=== PATIENT | male | born 1995 | race American Indian/Alaskan Native ===

== ENCOUNTER 2017-07-16 14:57 | Emergency (ER) | payer BC ==
[2017-07-16 15:44] VITALS: BP 173/104
[2017-07-16 16:40] LABS: Basophils # (Auto) 0.1 K/mm3 (0.0-0.1); Eosinophils # (Auto) 0.6 K/mm3 (0.0-0.4); Eosinophils % (Auto) 5.9 % (0.0-4.3); Hematocrit 47.5 % (35.5-45.6); Hemoglobin 15.1 gm/dl (11.8-15.2); Lymphocytes # (Auto) 2.7 K/mm3 (1.2-5.4); Lymphocytes % (Auto) 26.1 % (13.4-35.0); Mean Corpuscular HGB Conc 32 % (32-34); Mean Corpuscular Hemoglobin 22 pg (28-32); Mean Corpuscular Volume 70 fl (84-94); Monocytes # (Auto) 0.8 K/mm3 (0.0-0.8); Monocytes % (Auto) 7.5 % (0.0-7.3); Platelet Count 254 K/mm3 (140-440); Red Cell Distribution Width 15.8 % (13.2-15.2)
[2017-07-16 17:20] LABS: BUN/Creatinine Ratio 11; Blood Urea Nitrogen 10 mg/dL (9-20); Calcium 9.7 mg/dL (8.4-10.2); Hemolysis Index 15
--- NOTE | 2017-07-16 18:19 | XRay Report ---
FINAL REPORT EXAM: XR CHEST ROUTINE 2V HISTORY: Asthma TECHNIQUE: 2 view examination of the chest PRIORS: None FINDINGS: There is no visible pulmonary consolidation, pleural effusion, or pneumothorax. Cardiac silhouette size is normal without vascular congestion. No visible acute displaced fracture in the regional skeleton. IMPRESSION: No evidence of acute cardiopulmonary disease
== END 2017-07-17 00:13 | disposition left against medical advice (07) ==
LOC: ED 14:57
DX: J45.909 Unspecified asthma, uncomplicated (principal); Z53.21 Procedure and treatment not carried out due to patient leaving prior to being seen by health care provider
CPT/HCPCS: 36415; 71046; 80048; 85025

== ENCOUNTER 2017-10-06 08:15 | Emergency (ER) | payer BC ==
[2017-10-06] MEDS ORDERED: DUONEB *Not for PRN Use IH ONE (08:27)
[2017-10-06 10:59] VITALS: BP 122/56
--- NOTE | 2017-10-06 11:10 | Emergency Department Report ---
ED Asthma HPI - General Chief Complaint: Adult Asthma Stated Complaint: HOMER Time Seen by Provider: 10/06/17 09:40 Source: patient Mode of arrival: Ambulatory Limitations: No Limitations - History of Present Illness Initial Comments: This is a 21 y.o. male that presents with SOB, wheezing, and chest pain on awaking this morning. History of asthma diagnosed as child. He is out of proair inhaler for 2-3 months. Patient reports feeling fine and didn't think he needed to get a refill. He moved from [place] to [place] and no longer have a primary care provider. He is having chest tightness and wheezing currently. Denies fever, congestion, rhinorrhea, dizziness, and nausea/vomiting. MD Complaint: "asthma attack", wheezing -: This morning Asthma History: childhood onset Severity: mild Context: ran out of meds, medication non-compliance Associated Symptoms: dry cough, chest pain (chest tightness). denies: productive cough, fever, hemoptysis, leg edema, syncope - Related Data Current Asthma Therapy: none Previous Rx's Medication Instructions Recorded Last Taken Type ALBUTEROL Inhaler [ProAir HFA 2 puff IH QID PRN #1 inhalation 10/06/17 Unknown Rx Inhaler] Allergies Allergy/AdvReac Type Severity Reaction Status Date / Time No Known Allergies Allergy Verified 10/06/17 11:01 ED Review of Systems ROS: Stated complaint: HOMER Other details as noted in HPI Constitutional: denies: chills, fever Respiratory: cough, shortness of breath, SOB with exertion, wheezing Cardiovascular: denies: chest pain (tightness with cough), palpitations, edema, syncope Gastrointestinal: denies: abdominal pain, nausea, vomiting, diarrhea, constipation Neurological: denies: headache, weakness, numbness, paresthesias Psychiatric: denies: anxiety, depression ED Past Medical Hx - Past Medical History Previous Medical History?: Yes Hx Asthma: Yes - Surgical History Past Surgical History?: No - Social History Smoking Status: Never Smoker - Medications Home Medications: Home Medications Medication Instructions Recorded Confirmed Last Taken Type ALBUTEROL Inhaler [ProAir HFA 2 puff IH QID PRN #1 inhalation 10/06/17 Unknown Rx Inhaler] ED Physical Exam - General Limitations: No Limitations General appearance: alert, in no apparent distress - Respiratory Respiratory exam: Present: wheezes (throughout). Absent: rales, rhonchi, stridor, chest wall tenderness, accessory muscle use - Cardiovascular Cardiovascular Exam: Present: regular rate, normal rhythm, normal heart sounds. Absent: systolic murmur, diastolic murmur, rubs, gallop - GI/Abdominal GI/Abdominal exam: Present: soft, normal bowel sounds. Absent: distended, tenderness, guarding, rebound, rigid, organomegaly, mass - Neurological Exam Neurological exam: Present: alert, oriented X3, normal gait - Psychiatric Psychiatric exam: Present: normal affect, normal mood - Skin Skin exam: Present: warm, dry, intact, normal color. Absent: rash ED Course Vital Signs 10/06/17 10/06/17 08:24 10:58 Temperature 97.5 F L 97.7 F Pulse Rate 85 69 Respiratory 22 15 Rate Blood Pressure 145/80 Blood Pressure 122/56 [Left] O2 Sat by Pulse 94 100 Oximetry ED Medical Decision Making - Medical Decision Making 21 y.o. A.A. male that presents with SOB and chest tightness that started this morning. History of Asthma. Noncompliant with medication. He ran out of albuterol inhaler 2-3 months ago. Patient examined by me and in slight distress. Vitals stable. Given duoneb treatment once and prednisone 60 mg po once in ER. Wheezes resolved and sat 100% on room air. Asthma exacerbation, refilled albuterol inhaler. Discharged home stable. Return to work tomorrow. Follow up with PCP in 2-3 days. Critical care attestation.: If time is entered above; I have spent that time in minutes in the direct care of this critically ill patient, excluding procedure time. ED Disposition Clinical Impression: Asthma Qualifiers: Asthma severity: mild Asthma persistence: intermittent Asthma complication type : with acute exacerbation Qualified Code(s): J45.21 - Mild intermittent asthma with (acute) exacerbation Disposition: TO HOME OR SELFCARE Is pt being admited?: No Does the pt Need Aspirin: No Condition: Stable Instructions: Asthma (ED) Additional Instructions: It is important to use inhaler or have active albuterol inhaler and avoiding asthma triggers. Follow up with Primary Care Provider in 24-72 hours. Prescriptions: ALBUTEROL Inhaler [ProAir HFA Inhaler] 2 puff IH QID PRN #1 inhalation PRN Reason: Shortness Of Breath Referrals: [facility] [Provider Group] - 3-5 Days [facility] [Provider Group] - 3-5 Days [facility] [Provider Group] - 3-5 Days [facility] [Provider Group] - 3-5 Days Forms: Work/School Release Form(ED) Time of Disposition: 11:45 Print Language: ROMANSH
[2017-10-06] MEDS ORDERED: DELTASONE PO ONE (11:46)
== END 2017-10-06 11:58 | disposition home or self-care (01) ==
LOC: ED 08:15
DX: J45.909 Unspecified asthma, uncomplicated (principal)
CPT/HCPCS: 99283; J7512

== ENCOUNTER 2017-10-09 12:36 | Emergency (ER) | payer BC ==
[2017-10-09 12:53] VITALS: BP 133/79
[2017-10-09] MEDS ORDERED: DUONEB *Not for PRN Use IH ONE (13:22)
== END 2017-10-09 14:00 | disposition left against medical advice (07) ==
LOC: ED 12:36
DX: J45.909 Unspecified asthma, uncomplicated (principal); Z53.21 Procedure and treatment not carried out due to patient leaving prior to being seen by health care provider
CPT/HCPCS: 94640

== ENCOUNTER 2017-10-13 15:01 | Emergency (ER) | payer BC ==
[2017-10-13] MEDS ORDERED: DUONEB *Not for PRN Use IH ONE (15:19)
[2017-10-13 15:20] VITALS: BP 141/93
== END 2017-10-13 19:35 | disposition left against medical advice (07) ==
LOC: ED 15:01
DX: J45.909 Unspecified asthma, uncomplicated (principal); Z53.21 Procedure and treatment not carried out due to patient leaving prior to being seen by health care provider
CPT/HCPCS: 94640

== ENCOUNTER 2017-10-22 19:03 | Emergency (ER) | payer BC ==
[2017-10-22 19:16] VITALS: BP 105/63
[2017-10-22] MEDS ORDERED: DUONEB *Not for PRN Use IH ONE (19:16)
[2017-10-22] MEDS ORDERED: AMIDATE IV ONE (23:29)
== END 2017-10-23 00:45 | disposition left against medical advice (07) ==
LOC: ED 19:03
DX: J45.909 Unspecified asthma, uncomplicated (principal); Z53.21 Procedure and treatment not carried out due to patient leaving prior to being seen by health care provider
CPT/HCPCS: 94640

== ENCOUNTER 2017-11-14 08:06 | Emergency (ER) | payer BC ==
[2017-11-14 08:13] VITALS: BP 138/96
[2017-11-14] MEDS ORDERED: DUONEB *Not for PRN Use IH ONE (08:18)
[2017-11-14] MEDS ORDERED: DECADRON IM ONE (08:18)
--- NOTE | 2017-11-14 08:35 | Emergency Department Report ---
ED Asthma HPI - General Chief Complaint: Adult Asthma Stated Complaint: ASTHMA Time Seen by Provider: 11/14/17 08:18 Source: patient Mode of arrival: Ambulatory Limitations: No Limitations - History of Present Illness Initial Comments: This is a 21-year-old male nontoxic, well nourished in appearance, no acute signs of distress presents to the ED with c/o of wheezing with asthma exacerbation. Patient stated that pollen cause of this and he's been outside all day yesterday and this morning woke up with wheezing. Patient stated that he has been prescribed albuterol inhaler stated he just got a job and was not able to afford it so patient did not fill his medication. Patient denies any recent travels, long car rides, recent hospital stays. Patient denies any calf pain or calf tenderness. Patient denies any chest pain, fever, chills, hemoptysis, numbness, tingling, shortness of breath, back pain, abdominal pain. Patient denies any allergies. Past medical history includes asthma. MD Complaint: "asthma attack", wheezing -: This morning Asthma History: childhood onset Severity: mild Context: none known Associated Symptoms: none - Related Data Current Asthma Therapy: none Previous Rx's Medication Instructions Recorded Last Taken Type ALBUTEROL Inhaler [ProAir HFA 2 puff IH QID PRN #1 inhalation 10/06/17 Unknown Rx Inhaler] ALBUTEROL Inhaler [ProAir HFA 2 puff IH QID PRN #1 inhalation 11/14/17 Unknown Rx Inhaler] Prednisone [predniSONE 10 mg 10 mg PO .TAPER #1 tab.ds.pk 11/14/17 Unknown Rx (6-Day Pack, 21 Tabs)] Allergies Allergy/AdvReac Type Severity Reaction Status Date / Time No Known Allergies Allergy Verified 11/14/17 08:13 ED Review of Systems ROS: Stated complaint: ASTHMA Other details as noted in HPI Constitutional: denies: chills, fever Eyes: denies: eye pain, eye discharge, vision change ENT: denies: ear pain, throat pain Respiratory: wheezing. denies: cough, shortness of breath Cardiovascular: denies: chest pain, palpitations Endocrine: no symptoms reported Gastrointestinal: denies: abdominal pain, nausea, diarrhea Genitourinary: denies: urgency, dysuria Musculoskeletal: denies: back pain, joint swelling, arthralgia Skin: denies: rash, lesions Neurological: denies: headache, weakness, paresthesias Psychiatric: denies: anxiety, depression Hematological/Lymphatic: denies: easy bleeding, easy bruising ED Past Medical Hx - Past Medical History Previous Medical History?: Yes Hx Asthma: Yes - Surgical History Past Surgical History?: No - Social History Smoking Status: Never Smoker Substance Use Type: None - Medications Home Medications: Home Medications Medication Instructions Recorded Confirmed Last Taken Type ALBUTEROL Inhaler [ProAir HFA 2 puff IH QID PRN #1 inhalation 10/06/17 Unknown Rx Inhaler] ALBUTEROL Inhaler [ProAir HFA 2 puff IH QID PRN #1 inhalation 11/14/17 Unknown Rx Inhaler] Prednisone [predniSONE 10 mg 10 mg PO .TAPER #1 tab.ds.pk 11/14/17 Unknown Rx (6-Day Pack, 21 Tabs)] ED Physical Exam - General Limitations: No Limitations General appearance: alert, in no apparent distress - Head Head exam: Present: atraumatic, normocephalic - Eye Eye exam: Present: normal appearance Pupils: Present: normal accommodation - ENT ENT exam: Present: normal exam, mucous membranes moist - Neck Neck exam: Present: normal inspection, full ROM. Absent: tenderness, meningismus, lymphadenopathy - Respiratory Respiratory exam: Present: normal lung sounds bilaterally, wheezes (bilateral upper and lower lobes). Absent: respiratory distress, rales, rhonchi, stridor, chest wall tenderness, accessory muscle use, decreased breath sounds, prolonged expiratory - Cardiovascular Cardiovascular Exam: Present: regular rate, normal rhythm, normal heart sounds. Absent: bradycardia, tachycardia, irregular rhythm, systolic murmur, diastolic murmur, rubs, gallop - GI/Abdominal GI/Abdominal exam: Present: soft, normal bowel sounds. Absent: distended, tenderness, guarding, rebound, rigid, diminished bowel sounds - Rectal Rectal exam: Present: deferred - Extremities Exam Extremities exam: Present: normal inspection, full ROM, normal capillary refill. Absent: calf tenderness - Back Exam Back exam: Present: normal inspection, full ROM - Neurological Exam Neurological exam: Present: alert, oriented X3, normal gait - Psychiatric Psychiatric exam: Present: normal affect, normal mood - Skin Skin exam: Present: warm, dry, intact, normal color. Absent: rash ED Course Vital Signs 11/14/17 08:11 Temperature 97.7 F Pulse Rate 87 Respiratory 18 Rate Blood Pressure 138/96 O2 Sat by Pulse 97 Oximetry - Reevaluation(s) Reevaluation #1: 11/14/17 08:39 Patient is speaking in full sentences with no signs of distress noted. ED Medical Decision Making - Medical Decision Making This is a 21-year-old male that presents with asthma exacerbation. Patient is stable and was examined by me. Chest x-ray has been obtained and dictated by the radiologist within normal limits. Patient is notified of the x-ray report with no questions noted by the patient. Patient did receive DuoNeb and steroids in the ED which patient the symptoms has resolved and subsided. Posttreatment and there is no wheezing upon auscultation. Patient is discharged with albuterol and prednisone. Patient was referred to Follow-up with a primary care doctor in 3-5 days or if symptoms worsen and continue return to emergency room as soon as possible. At time of discharge, the patient does not seem toxic or ill in appearance. No acute signs of distress noted. Patient agrees to discharge treatment plan of care. No further questions noted by the patient. This chart is dictated with using [employer] [employer] D[employer]ation [employer] Critical care attestation.: If time is entered above; I have spent that time in minutes in the direct care of this critically ill patient, excluding procedure time. ED Disposition Clinical Impression: Asthma exacerbation Qualifiers: Asthma severity: mild Asthma persistence: intermittent Qualified Code(s): J45.21 - Mild intermittent asthma with (acute) exacerbation Disposition: DC-01 TO HOME OR SELFCARE Is pt being admited?: No Does the pt Need Aspirin: No Condition: Stable Instructions: Asthma (ED), Prednisone (By mouth), Albuterol (By breathing) Additional Instructions: Follow-up with a primary care doctor in 3-5 days or if symptoms worsen and continue return to emergency room as soon as possible. Prescriptions: ALBUTEROL Inhaler [ProAir HFA Inhaler] 2 puff IH QID PRN #1 inhalation PRN Reason: Shortness Of Breath Prednisone [predniSONE 10 mg (6-Day Pack, 21 Tabs)] 10 mg PO .TAPER #1 tab.ds.pk Referrals: PRIMARY CARE, [Primary Care Provider] - 3-5 Days NELI RICE MD [Staff Physician] - 3-5 Days [facility] [Outside] - 3-5 Days [facility] [Outside] - 3-5 Days Forms: Work/School Release Form(ED)
--- NOTE | 2017-11-14 09:25 | XRay Report ---
CHEST 2 VIEWS INDICATION: Wheezing. COMPARISON: 07/16/2017. FINDINGS: PA and lateral chest radiographs demonstrate normal cardiomediastinal silhouette. Minimal peribronchial thickening without focal consolidation, pleural effusion or CHF. Intact bones. CONCLUSION: Slight peribronchial thickening/bronchitis. Please correlate. Thank you for the opportunity to participate in this patient's care.
== END 2017-11-14 09:49 | disposition home or self-care (01) ==
LOC: ED 08:06
DX: J45.21 Mild intermittent asthma with (acute) exacerbation (principal)
CPT/HCPCS: 71046; 94640; 96372; 99283; J1100

== ENCOUNTER 2017-12-19 09:36 | Emergency (ER) | payer BC ==
[2017-12-19 09:55] VITALS: BP 135/69
--- NOTE | 2017-12-19 11:09 | Emergency Department Report ---
ED Male HPI - General Chief complaint: Urogenital-Male Stated complaint: PAIN IN LOWER AREA Time Seen by Provider: 12/19/17 10:44 Source: patient Mode of arrival: Ambulatory Limitations: No Limitations - History of Present Illness Initial comments: This is a 21 y.o. male that presents with penile discharge and dysuria for 1 week. Patient reports noticing white milky discharge one week ago but thought it would go away. States dysuria started a few days ago and increased in the past 2 days. He has not tried taking anything at this time. He only has intercourse with one partner. Denies fever, frequency, urgency, testicular pain or swelling, low abdominal pain, and low back pain. MD Complaint: penile discharge, dysuria -: week(s) (1 week) Location: penis Radiation: none Severity: mild Severity scale (0 -10): 0 Quality: burning Consistency: intermittent Improves with: none Worsens with: urination discharge, dysuria. denies: swelling, mass, rash, urinary retention, blood in urine, fever, nausea/vomiting, incontinence - Related Data Sexually active: Yes Previous Rx's Medication Instructions Recorded Last Taken Type ALBUTEROL Inhaler [ProAir HFA 2 puff IH QID PRN #1 inhalation 10/06/17 Unknown Rx Inhaler] ALBUTEROL Inhaler [ProAir HFA 2 puff IH QID PRN #1 inhalation 11/14/17 Unknown Rx Inhaler] Prednisone [predniSONE 10 mg 10 mg PO .TAPER #1 tab.ds.pk 11/14/17 Unknown Rx (6-Day Pack, 21 Tabs)] Allergies Allergy/AdvReac Type Severity Reaction Status Date / Time No Known Allergies Allergy Verified 11/14/17 08:13 ED Review of Systems ROS: Stated complaint: PAIN IN LOWER AREA Other details as noted in HPI Constitutional: denies: chills, fever Respiratory: denies: cough, shortness of breath, wheezing Cardiovascular: denies: chest pain, palpitations Gastrointestinal: denies: abdominal pain, nausea, vomiting, diarrhea Genitourinary: dysuria, discharge. denies: urgency, frequency, hematuria, testicular pain, testicular mass Musculoskeletal: denies: back pain, joint swelling, arthralgia, myalgia Neurological: denies: headache, weakness, numbness, paresthesias Psychiatric: denies: anxiety, depression ED Past Medical Hx - Past Medical History Hx Hypertension: Yes Hx Asthma: Yes - Surgical History Past Surgical History?: No - Social History Smoking Status: Never Smoker Substance Use Type: None - Medications Home Medications: Home Medications Medication Instructions Recorded Confirmed Last Taken Type ALBUTEROL Inhaler [ProAir HFA 2 puff IH QID PRN #1 inhalation 10/06/17 Unknown Rx Inhaler] ALBUTEROL Inhaler [ProAir HFA 2 puff IH QID PRN #1 inhalation 11/14/17 Unknown Rx Inhaler] Prednisone [predniSONE 10 mg 10 mg PO .TAPER #1 tab.ds.pk 11/14/17 Unknown Rx (6-Day Pack, 21 Tabs)] ED Physical Exam - General Limitations: No Limitations General appearance: alert, in no apparent distress - Respiratory Respiratory exam: Present: normal lung sounds bilaterally. Absent: respiratory distress - Cardiovascular Cardiovascular Exam: Present: regular rate, normal rhythm, normal heart sounds. Absent: systolic murmur, diastolic murmur, rubs, gallop - GI/Abdominal GI/Abdominal exam: Present: soft, normal bowel sounds. Absent: organomegaly, mass - exam: Present: normal inspection, testicular tenderness (right side), urethral discharge (milky white), circumcision. Absent: scrotal swelling, vertical testicular lie External exam: Present: normal external exam. Absent: erythema, swelling, lesions, lacerations, ecchymosis, bleeding - Back Exam Back exam: Absent: CVA tenderness (R), CVA tenderness (L) - Neurological Exam Neurological exam: Present: alert, oriented X3 - Psychiatric Psychiatric exam: Present: normal affect, normal mood - Skin Skin exam: Present: warm, dry, intact, normal color. Absent: rash ED Course Vital Signs 12/19/17 09:51 Temperature 98.1 F Pulse Rate 44 L Respiratory 18 Rate Blood Pressure 135/69 O2 Sat by Pulse 100 Oximetry ED Medical Decision Making - Medical Decision Making This is a 21-year-old -[place] male who presents with penile discharge and dish area for one week. Patient was examined by me. Vitals are normal and in no acute distress. Urinalysis and GC obtained. Urinalysis elevated leukocytes and WBCs, GC pending. Empirically treated with Rocephin 250 mg IM and azithromycin 1 g by mouth for suspected gonorrhea or chlamydia. Discharged home in stable condition. Discussed prevention options. F/U with PCP or Health Department. Critical care attestation.: If time is entered above; I have spent that time in minutes in the direct care of this critically ill patient, excluding procedure time. ED Disposition Clinical Impression: Exposure to STD Disposition: DC-01 TO HOME OR SELFCARE Is pt being admited?: No Does the pt Need Aspirin: No Condition: Stable Instructions: Sexually Transmitted Diseases (ED), Safe Sex (ED) Additional Instructions: Avoid drinking alcohol while taking antibiotics and for 24 hours after completion. Notify part of diagnosis and advised to have full screening. Continue safe sexual intercourse. Follow up with Primary Care Provider or health department. Referrals: [facility] [place] [Outside] - 3-5 Days [facility] [Outside] - 3-5 Days [facility] [Outside] - 3-5 Days Time of Disposition: 12:10 Print Language: NAURUAN
[2017-12-19 11:56] LABS: Bacteria,Urine 1+ /HPF (Negative); Bilirubin,Urine NEG (Negative); Blood,Urine NEG (Negative); Color,Urine Yellow (Yellow); Mucus,Urine 2+ /HPF; Protein,Urine <15 mg/dL mg/dL (Negative); Urobilinogen,Urine < 2.0 mg/dL (<2.0)
[2017-12-19] MEDS ORDERED: XYLOCAINE 1% MPF 5 mL INFILTRATI ONE (12:11)
[2017-12-19] MEDS ORDERED: ROCEPHIN IM ONE (12:11)
[2017-12-19] MEDS ORDERED: ZITHROMAX PO ONE (12:11)
[2017-12-19 12:17] LABS: WBC,Urine > 182.0 /HPF (0.0-6.0)
== END 2017-12-19 12:40 | disposition home or self-care (01) ==
LOC: ED 09:36
DX: R36.9 Urethral discharge, unspecified (principal); I10 Essential (primary) hypertension; J45.909 Unspecified asthma, uncomplicated
CPT/HCPCS: 81001; 87591; 96372; 99283; J0696

== ENCOUNTER 2018-01-19 16:24 | Emergency (ER) | payer BC ==
[2018-01-19] MEDS ORDERED: ATROVENT IH ONE ×2 (16:25→16:43)
[2018-01-19] MEDS ORDERED: PROVENTIL IH ONE ×2 (16:25→16:43)
[2018-01-19 16:48] VITALS: BP 140/86
== END 2018-01-19 19:00 | disposition left against medical advice (07) ==
LOC: ED 16:24
DX: R06.02 Shortness of breath (principal); Z53.21 Procedure and treatment not carried out due to patient leaving prior to being seen by health care provider
CPT/HCPCS: 94640

== ENCOUNTER 2018-02-23 07:44 | Emergency (ER) | payer BC ==
[2018-02-23] MEDS ORDERED: XOPENEX IH ONE ×2 (07:59→08:03)
[2018-02-23 08:21] LABS: Basophils # (Auto) 0.1 K/mm3 (0.0-0.1); Basophils % (Auto) 0.7 % (0.0-1.8); Eosinophils # (Auto) 0.5 K/mm3 (0.0-0.4); Eosinophils % (Auto) 3.6 % (0.0-4.3); Hematocrit 46.3 % (35.5-45.6); Hemoglobin 14.7 gm/dl (11.8-15.2); Lymphocytes # (Auto) 1.6 K/mm3 (1.2-5.4); Lymphocytes % (Auto) 11.2 % (13.4-35.0); Mean Corpuscular HGB Conc 32 % (32-34); Monocytes % (Auto) 7.3 % (0.0-7.3); Platelet Count 286 K/mm3 (140-440); Red Blood Count 6.72 M/mm3 (3.65-5.03); Red Cell Distribution Width 15.8 % (13.2-15.2)
[2018-02-23 08:23] LABS: Mean Corpuscular Hemoglobin 22 pg (28-32); Mean Corpuscular Volume 69 fl (84-94)
[2018-02-23 08:36] LABS: BUN/Creatinine Ratio 13; Blood Urea Nitrogen 10 mg/dL (9-20); Calcium 9.7 mg/dL (8.4-10.2); Hemolysis Index 16
[2018-02-23 08:40] VITALS: BP 143/83
--- NOTE | 2018-02-23 09:04 | XRay Report ---
PA and lateral chest: SOB. There is an area of focal opacification in what appears to be the lateral segment of the right lower lobe. The lungs otherwise are clear. The mediastinal structures and cardiac silhouette are unremarkable. Compared to prior exam in November 2017 the pulmonary opacification is new. Impression: Findings consistent with right lower lobe pneumonia.
--- NOTE | 2018-02-23 09:14 | Emergency Department Report ---
Minor Respiratory - HPI Chief Complaint: Dyspnea/Respdistress Stated Complaint: ASTHMA ATTACK Time Seen by Provider: 02/23/18 09:14 Duration: Today Pain Location: Chest Severity: moderate Minor Respiratory: Yes Able to Tolerate Fluids, Yes Chest Pain (chest discomfort with cough), Yes Shortness of Breath, Yes Fever, No Rhinorrhea, No Sore Throat, No Ear Pain, No Cough, No Sick Contacts, No Hemoptysis Other History: This is a 22-year-old -[place] male who presents with shortness of breath and chest discomfort that started this morning. Patient has a past medical history of asthma. Patient states he woke this morning around 5 AM with the persistent nonproductive cough with chest discomfort. He took prednisone and a nebulized treatment at home prior to coming in with no improvement of symptoms. Patient states wheezing and chest discomfort increased and he decided to come in for evaluation. Patient admits to fever with congestion prior to symptoms starting. Patient denies nausea or vomiting and body aches. ED Review of Systems ROS: Stated complaint: ASTHMA ATTACK Other details as noted in HPI Constitutional: fever. denies: chills Respiratory: cough, shortness of breath, wheezing Cardiovascular: chest pain (chest discomfort). denies: palpitations Gastrointestinal: denies: abdominal pain, nausea, diarrhea Skin: denies: rash, lesions Neurological: denies: headache, weakness, paresthesias Psychiatric: denies: anxiety, depression ED Past Medical Hx - Past Medical History Previous Medical History?: Yes Hx Hypertension: Yes Hx Asthma: Yes - Surgical History Past Surgical History?: No - Social History Smoking Status: Current Every Day Smoker Substance Use Type: None - Medications Home Medications: Home Medications Medication Instructions Recorded Confirmed Last Taken Type ALBUTEROL Inhaler [ProAir HFA 2 puff IH QID PRN #1 inhalation 10/06/17 Unknown Rx Inhaler] ALBUTEROL Inhaler [ProAir HFA 2 puff IH QID PRN #1 inhalation 11/14/17 Unknown Rx Inhaler] Prednisone [predniSONE 10 mg 10 mg PO .TAPER #1 tab.ds.pk 11/14/17 Unknown Rx (6-Day Pack, 21 Tabs)] Minor Respiratory Exam - Exam General: Vital signs noted. No distress. Alert and acting appropriately. HEENT: Yes Moist Mucous Membranes, Yes Rhinorrhea (turbinates are mildly congested with clear discharge), No Pharyngeal Erythema, No Pharyngeal Exudates , No Conjuctival Injection, No Frontal Tenderness, No Maxillary Tenderness Ear: Neither TM Bulge, Neither TM Erythema, Neither EAC Pain, Neither EAC Discharge Neck: Yes Supple, No Adenopathy Lungs: Yes Wheezes, No Good Air Exchange, No Ronchi, No Stridor, No Cough, No Labored Respirations, No Retractions, No Use of Accessory Muscles, No Other Abnormal Lung Sounds Heart: Yes Regular, No Murmur Abdomen: Yes Normal Bowel Sounds, No Tenderness, No Peritoneal Signs Skin: No Rash, No Edema Neurologic: Alert and oriented, no deficits. Musculoskeletal: Unremarkable. ED Course Vital Signs 02/23/18 02/23/18 02/23/18 07:49 08:39 08:40 Temperature 99.8 F H Pulse Rate 113 H 96 H Respiratory 24 20 20 Rate Blood Pressure 164/80 Blood Pressure 143/83 [Right] O2 Sat by Pulse 96 96 96 Oximetry ED Medical Decision Making - Lab Data Result diagrams: 02/23/18 07:57 02/23/18 07:57 - Radiology Data Radiology results: report reviewed, image reviewed PA and lateral chest: SOB. There is an area of focal opacification in what appears to be the lateral segment of the right lower lobe. The lungs otherwise are clear. The mediastinal structures and cardiac silhouette are unremarkable. Compared to prior exam in November 2017 the pulmonary opacification is new. Impression: Findings consistent with right lower lobe pneumonia. - Medical Decision Making Patient is stable and was examined by me. Patient given Xopenex treatment in triage. Chest xray has been obtained and dictated by radiologist. Report review by myself and consistent with right lower lobe pneumonia. Patient was not in room when I attempt to give results. I attempt 3 times to call patient without answer. Critical care attestation.: If time is entered above; I have spent that time in minutes in the direct care of this critically ill patient, excluding procedure time. ED Disposition Clinical Impression: Left against medical advice Disposition: LEFT AGAINST MED ADVICE Is pt being admited?: No Condition: Stable Referrals: PRIMARY CARE, [Primary Care Provider] - 3-5 Days
== END 2018-02-23 09:35 | disposition left against medical advice (07) ==
LOC: ED 07:44
DX: J18.1 Lobar pneumonia, unspecified organism (principal); I10 Essential (primary) hypertension; J45.909 Unspecified asthma, uncomplicated; F17.200 Nicotine dependence, unspecified, uncomplicated
CPT/HCPCS: 36415; 71046; 80048; 85025; 94640; 99284